=== PATIENT | male | born 1955 | race Caucasian/White ===

== ENCOUNTER 2019-09-30 08:00 | Day surgery (SDC) | payer SELFPAY ==
[2019-09-29 09:16] VITALS: BMI 28.1
[2019-09-30 08:21] VITALS: BP 119/85; PULSE 89; RESP 18; TEMP 36.2; O2SAT 96
[2019-09-30] MEDS: sodium chloride 0.9% 1,000 ML 30 ML IV (08:37)
--- NOTE | 2019-09-30 08:37 | W.PM.OPSUD ---
Surgery/Procedure H&P Update DATE OF PROCEDURE: September 30, 2019 DATE H&P PERFORMED: 09/25/19 H&P UPDATE INFORMATION: I have reviewed H&P completed within last 30 days, I have examined patient prior to procedure and No changes to prior documentation PREOP DIAGNOSIS: History of colon polyps PLANNED PROCEDURE: Operation Date: 09/30/19 09:50 Proposed Procedures p Colonoscopy 26373/Z86.010 history of colonic polyps(Not Applicable) - Demario Doshi MD
--- NOTE | 2019-09-30 09:02 | ANES.PREANE2 ---
Pre-Anesthetic Assessment Pre-Anesthetic Assessment: Height/Weight: Height 1.7 m Weight 81.647 kg Temp Pulse Resp BP Pulse Ox 97.2 F L 89 18 119/85 96 09/30/19 08:21 09/30/19 08:21 09/30/19 08:21 09/30/19 08:21 09/30/19 08:21 Preop Diagnosis: History of colon polyps Proposed Procedure: Operation Date: 09/30/19 09:50 Proposed Procedures p Colonoscopy 68389/Z86.010 history of colonic polyps(Not Applicable) - Demario Doshi MD Was Beta Matteo taken within 24 hours: N/A Last intake: Intake Last Liquid Date 09/29/19 Last Liquid Time 21:00 Last Solid Date 09/28/19 Last Solid Time 23:59 Last Intake: 12:00 Social: Social History: Tobacco Exam: Pre-Anes Outpt Exam: alert, oriented x 3, clear to auscultation bilaterally and regular rate & rhythm Airway: Submandibular: WNL Cervical ROM: WNL MP: 2 Dentition: False Pulmonary: Pulmonary: None reported CV/HEM: CV/HEM: HTN GI: GI: GERD Anesthetic Plan: ASA status: 2 Anesthesia: Anesthesia Evaluation and MAC Risk of > 500 ml blood loss (7ml/kg in children): No Meds/Allergies Current Medications: Current Medications Generic Name Dose Route Start Last Admin Trade Name Freq PRN Reason Stop Dose Admin Sodium Chloride 1,000 mls @ 30 ml s/hr 09/30/19 08:15 09/30/19 08:37 Sodium Chloride 0.9% IV 10/01/19 08:14 30 mls/hr .Q24H CLAY Administration PFSH Anesthesia PFSH: Social History Smoking and tobacco status: current every day smoker Alcohol intake: never History of recent travel: No Data Anesthesia Cardiac Studies: No Data to Display
[2019-09-30 10:27] VITALS: BP 124/79; PULSE 68; RESP 16; TEMP 36.1; O2SAT 98
--- NOTE | 2019-09-30 10:36 | ANE.PACU2 ---
 Inpatient post-anesthesia follow up: Airway intact: Yes Vital signs: Temperature 97 F Pulse Rate 68 Respiratory Rate 16 Blood Pressure 124/79 Pulse Oximetry 98 Oxygen Delivery Me thod Nasal Cannula Oxygen Flow Rate 3 Fraction of Inspir ed Oxygen Hydration adequate: Yes Nausea and vomiting: No Mental status: Baseline
[2019-09-30 10:42] VITALS: BP 118/78; PULSE 75; RESP 20; O2SAT 96
== END 2019-09-30 11:04 | disposition home or self-care (01) ==
PROVIDERS: Family Provider Nurse Practitioner Family; PCP Nurse Practitioner Family; Visit Provider Surgery
PROC: 0DJD8ZZ Inspection of Lower Intestinal Tract, Via Natural or Artificial Opening Endoscopic (ICD-10-PCS; CPT 45378; principal; 2019-09-30 09:45)
DX: K92.1 Melena (principal); K21.9 Gastro-esophageal reflux disease without esophagitis; I10 Essential (primary) hypertension; F17.210 Nicotine dependence, cigarettes, uncomplicated; Z86.010 Personal history of colon polyps; D12.2 Benign neoplasm of ascending colon; K57.30 Diverticulosis of large intestine without perforation or abscess without bleeding; K64.8 Other hemorrhoids
CPT/HCPCS: 45380; 12345; 88305; J2001; J7030

== ENCOUNTER 2022-06-07 15:49 | Emergency (ER) | payer MEDICARE, SELFPAY ==
[2022-06-07 16:01] VITALS: BP 134/83; PULSE 89; RESP 16; TEMP 36.7; O2SAT 90; BMI 25.8
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
== END 2022-06-07 18:05 | disposition home or self-care (01) ==
PROVIDERS: Emergency Provider Physician Assistant
DX: S16.1XXA Strain of muscle, fascia and tendon at neck level, initial encounter (principal); V89.2XXA Person injured in unspecified motor-vehicle accident, traffic, initial encounter; I10 Essential (primary) hypertension; F17.210 Nicotine dependence, cigarettes, uncomplicated
CPT/HCPCS: 72040; 73130; 99283

== ENCOUNTER 2022-07-06 06:00 | Outpatient (RCR) | payer SELFPAY | END 2022-07-25 23:59 | disposition home or self-care (01) | LOC: MPT 06:00 | PROVIDERS: Visit Provider Family Medicine | DX: M54.2 Cervicalgia (principal) | CPT/HCPCS: 97110; 97140; 97162; G0283 ==

== ENCOUNTER 2022-07-26 06:00 | Outpatient (RCR) | payer MEDICARE, SELFPAY | END 2022-08-25 23:59 | disposition home or self-care (01) | LOC: MPT 06:00 | PROVIDERS: Visit Provider Family Medicine | DX: M54.2 Cervicalgia (principal) | CPT/HCPCS: 97110; 97140; G0283 ==

== ENCOUNTER 2022-08-26 06:00 | Outpatient (RCR) | payer MEDICARE, SELFPAY | END 2022-09-24 23:59 | disposition home or self-care (01) | LOC: MPT 06:00 | PROVIDERS: Visit Provider Family Medicine | DX: M54.2 Cervicalgia (principal) | CPT/HCPCS: 97110; 97140; G0283 ==

== ENCOUNTER 2022-09-25 06:00 | Outpatient (RCR) | payer MEDICARE, SELFPAY | END 2022-10-25 23:59 | disposition home or self-care (01) | LOC: MPT 06:00 | PROVIDERS: Visit Provider Family Medicine | DX: M54.2 Cervicalgia (principal) | CPT/HCPCS: 97110; 97140; G0283 ==

== ENCOUNTER → 2024-06-05 08:40 | Outpatient (BNVA) | payer MEDICARE, SELFPAY | PROVIDERS: Visit Provider Student in an Organized Health Care Education/Training Program | DX: K92.1 Melena | CPT/HCPCS: 99204 ==